=== PATIENT | male | born 1990 | race Two or more races ===

== ENCOUNTER 2019-07-23 17:46 | Emergency (ER) | payer SELFPAY ==
[~2019-07-23] VITALS: Ht 175.3 cm; Wt 104.3 kg
[2019-07-23 18:47] VITALS: BP 123/99
[2019-07-23] MEDS ORDERED: ACETAMINOPHEN 500 MG TAB PO ONE (19:45)
[2019-07-23] MEDS ORDERED: LIDOCAINE VISCOUS 2% 15ML UD PO ONE (19:45)
== END 2019-07-23 22:58 | disposition home or self-care (01) ==
LOC: ER 17:46
DX: K04.7 Periapical abscess without sinus (principal); K03.81 Cracked tooth; J03.90 Acute tonsillitis, unspecified; I10 Essential (primary) hypertension
CPT/HCPCS: 71045; 87804; 87880